=== PATIENT | female | born 1985 | race Caucasian/White ===

== ENCOUNTER → 2020-05-13 | Outpatient (CLI) | payer OTHER ==
[~2020-05-13] MED LIST: LIDOCAINE 1% INJ 20 ML 20 ML VIAL INJ ONE
--- NOTE | 2020-05-13 11:39 | Diagnostic Imaging Report ---
INDICATION: Right thyroid mass. Patient presents for ultrasound-guided biopsy. Patient is brought to the procedure room and placed on table in the supine position. Ultrasound imaging of the right neck was performed to evaluate appropriate entry site. A right neck was then prepped and draped in usual sterile fashion. Small amount of 1% lidocaine was utilized for local anesthesia. A total of 4 passes were made into the hypoechoic mass located in the right thyroid bed utilizing 25-gauge needles and fine-needle aspiration technique. A single pass was made into the lesion with a Rotex needle and a Rotex biopsy was obtained. Scott were removed and hemostasis was obtained. Patient tolerated procedure well and left the department in stable condition. IMPRESSION: Successful ultrasound-guided fine-needle aspiration and Rotex biopsy of the right thyroid bed hypoechoic mass. Pathology results are currently pending. Dictated by: Dictated on workstation # [id number]
== END ==
LOC: RAD 10:28
PROVIDERS: ATTEND Surgery
DX: E07.9 Disorder of thyroid, unspecified (principal)

== ENCOUNTER → 2020-07-15 | Outpatient (CLI) | payer OTHER ==
[~2020-07-15] MED LIST changes: +CATHETER FLUSH 10 ML SYR IV PRN; +HOLD METFORMIN - RECEIVED CONTRAST 20 ML VIAL IV SCH; +IOHEXOL 350 MG/ML 100 ML (OMNIPAQUE 350) VIAL IV ONE; -LIDOCAINE 1% INJ 20 ML 20 ML VIAL INJ ONE; +NS 100 ML (IVPB) BAG IV ONE
--- NOTE | 2020-07-15 12:04 | Diagnostic Imaging Report ---
INDICATION: Chronic migraine headaches. Patient also had a history of a thyroid mass status post thyroidectomy. Pre and postcontrast axial imaging of the brain with postcontrast axial imaging of the soft tissues of the neck was performed. No prior studies are available for comparison. CT head with and without: Ventricles and sulci are within normal limits. No sulcal effacement or midline shift is identified. No acute intra-axial or extra-axial hemorrhage is identified. No abnormal enhancement following contrast administration is identified. The cisterns are patent. The visualized paranasal sinuses are clear. IMPRESSION: Unremarkable pre and postcontrast CT of the brain. CT neck with: Visualized intercranial structures are unremarkable. Posterior nasopharynx and oropharynx are unremarkable. Parapharyngeal fat planes are preserved. The epiglottis and larynx are unremarkable. Postsurgical changes from thyroidectomy are identified. There is some residual tissue in the right thyroid bed measuring 1.87 m AP by 1.1 cm transverse. This could represent residual thyroid tissue. Bilateral submandibular and parotid glands are symmetric. No definite cervical lymphadenopathy is identified. No fluid collection is identified. IMPRESSION: Residual tissue in the right thyroid bed. This has been recently biopsied. Otherwise CT neck is unremarkable2. No other significant abnormality is detected.. Dictated by: Dictated on workstation # [id number]
== END ==
LOC: RAD FS 09:06
PROVIDERS: ATTEND Nurse Practitioner Family
DX: E07.9 Disorder of thyroid, unspecified (principal); G43.909 Migraine, unspecified, not intractable, without status migrainosus; R22.0 Localized swelling, mass and lump, head
CPT/HCPCS: 70470; 70491